=== PATIENT | male | born 1975 | race Caucasian/White ===

== ENCOUNTER 2018-08-20 06:27 | Inpatient (IN) | payer SELFPAY ==
[2018-08-20 07:37] LABS: Anion Gap 19 mmol/L (10-20); BUN (Urea Nitrogen) 15 mg/dL (8.9-20.6); Calc. Creatinine Clearance 0 mL/min (70-130); Calcium 9.2 mg/dL (7.8-10.44); Carbon Dioxide 21 mmol/L (22-29); Chloride 90 mmol/L (98-107); Estimated GFR-MDRD 57; Potassium 4.1 mmol/L (3.5-5.1); Sodium 126 mmol/L (136-145)
[2018-08-20] MEDS ORDERED: Insulin Regular 100 units/100 ml in NS IVPB SCH (07:45)
[2018-08-20 07:49] LABS: Glucose 628 mg/dL (70-105)
--- NOTE | 2018-08-20 08:14 | PDOC.FPRHP ---
- History of Present Illness Chief Complaint: Hyperglycemia History of Present Illness: This is a 42 yo obese male who presents to the ED from [facility] with a cc of right arm spasms. He states the spasms started a yesterday evening. He states he does not have control of his arm when these happen. He also states he has been very thirsty and urinating often. He presented to [facility] where his head CT was negative. At that ED, he was found to have an elevated blood glucose of 961. At that time sodium was 116, potassium was 4.5, there was no anion gap at that time and bicarb was 22. Pt received 8 units of IV insulin and was shipped to our ER due to the inability to start insulin drip and at family request. ED Course: Inuslin in fusion 10 units/hour - Allergies/Adverse Reactions Allergies Allergy/AdvReac Type Severity Reaction Status Date / Time No Known Allergies Allergy Unverified 08/20/18 07:38 - Home Medications Medication Instructions Recorded Confirmed Type No Known 08/20/18 08/20/18 History - History PMHx: negative PSHx: negative FHx: noncontributory Social: Denies alcohol use, smokes .5 pack, past use of cocaine, marijuana - Review of Systems General: reports: fatigue. denies: fever/chills, weight/appetite/sleep changes , night sweats Eyes: denies: eye pain, vision changes ENT: denies: nasal congestion, rhinorrhea Respiratory: denies: cough, congestion, shortness of breath Cardiovascular: denies: chest pain, palpitation, edema, paroxysmal nocturnal dyspnea Gastrointestinal: reports: other (polydipsia). denies: nausea, vomiting, diarrhea, constipation Genitourinary: reports: polyuria, other Skin: denies: rashes, lesions Musculoskeletal: denies: pain, tenderness Neurological: denies: numbness, syncope, seizure Psychological: denies: anxiety, depression - Vital signs BP: 120/73 HR: 90 RR: 18 Tmax: 97.9 Pox: 98% on ra Wt: 104 kg - Physical Exam Constitutional: NAD, awake, alert and oriented, other (obese) HEENT: normocephalic and atraumatic, PERRLA, EOMI -HEENT: dry mucus membranes Neck: supple, FROM, trachea midline, no JVD Chest: no-tender to palpation, no lesions Heart: RRR, normal S1/S2, no murmurs/rubs/gallops Lungs: CTAB, no respiratory distress, no wheezing Abdomen: soft, non-tender, bowel sounds present, no masses/distention Musculoskeletal: normal structure, normal tone, ROM grossly normal Neurological: CN II-XII intact Skin: no rash/lesions, good turgor Heme/Lymphatic: no unusual bruising or bleeding, no purpura Psychiatric: normal mood and affect, intact recent and remote memory FMR H&P: Results - Labs Result Diagrams: 08/20/18 11:08 Lab results: Sodium 126 mmol/L (136-145) L 08/20/18 07:02 Potassium 4.1 mmol/L (3.5-5.1) 08/20/18 07:02 Chloride 90 mmol/L (98-107) L 08/20/18 07:02 Carbon Dioxide 21 mmol/L (22-29) L 08/20/18 07:02 BUN 15 mg/dL (8.9-20.6) 08/20/18 07:02 Creatinine 1.36 mg/dL (0.7-1.3) H 08/20/18 07:02 Glucose 628 mg/dL (70-105) H* 08/20/18 07:02 Calcium 9.2 mg/dL (7.8-10.44) 08/20/18 07:02 FMR H&P: A/P - Problem List (1) Type 2 diabetes mellitus with hyperosmolar nonketotic hyperglycemia Current Visit: Yes Status: Acute Code(s): E11.01 - TYPE 2 DIABETES MELLITUS WITH HYPEROSMOLARITY WITH COMA (2) Hyponatremia Current Visit: Yes Status: Acute Code(s): E87.1 - HYPO-OSMOLALITY AND HYPONATREMIA (3) Tobacco abuse Current Visit: Yes Status: Acute Code(s): Z72.0 - TOBACCO USE - Plan This is a 42 yo obese male with no pmh New onset Type 2 diabetes with hyperosmolar hyperglycemic state -Admit to IMCU -Initial blood sugar was 961 -Start Insulin drip, currently at 10 units/hr -Monitor electrolytes and replace as necessary -Aggressive IVF resuscitation - Initial effective osmolality: 313 ORACIO -continue IVF resuscitation, monitor Hyponatremia -Initially 130 (corrected), we will continue to monitor -Currently using NS for IVF Tobacco abuse -Nicotine patch -Encourage cessation Code: full Prophylaxis: lovenox Family: none at bedside Disposition: Home in 1-2 days FMR H&P: Upper Level - Pertinent history 42M presenting to outside ED with primary complaint of right arm spasms. He has had involuntary movement in that arm for the last day with some mild pain. Of note, he has been very thirsty over the last two weeks with associated polyuria. He is c/o fatigue and grogginess as well. Laboratory evaluation reveals profound hyperglycemia but no anion gap. He was given a bolus of 8 units regular insulin and transferred to [facility] for a higher level of care. - Pertinent findings EKG: NSR B at outside ED->628->308 K: 4.5->4.1->3.0 Na: 126->134 beta-HB: 2.56 - Plan Date/Time: 08/20/18 0814 I, Rod Stoddard, have evaluated this patient and agree with findings/plan as outlined by international account executive resident. Pertinent changes/additions are listed here. Diabetic HHS: profoundly hypoglycemic in a hyperosmolar state. No anion gap. Lantus SC given now and will turn off insulin drip in one hour. Continue serial BMPs to monitor potassium. Being repleted in IVF. DMII is a new diagnosis for patient. Will need extensive diabetes education. ORACIO: 2/2 to #1. continue aggressive IVF hydration per protocol. Pseudohyponatremia: normal range when hyperglycemia accounted for. continue serial BMPs
[2018-08-20] MEDS ORDERED: D5 1/2 NS w/20 mEq KCL 1,000 ML IV PRN (09:34)
[2018-08-20] MEDS ORDERED: CCU Electrolyte Replacement 1 EACH IVPB ONE (09:34)
[2018-08-20] MEDS ORDERED: Sodium Chloride 0.9% 1,000 ML IV PRN ×4 (09:34)
[2018-08-20] MEDS ORDERED: NS 0.9% w/ 20 MEQ KCL 1,000 ML IV PRN ×2 (09:34)
[2018-08-20] MEDS ORDERED: Dextrose 5 %-0.45 % NaCl 1,000 ML IV PRN (09:34)
[2018-08-20] MEDS ORDERED: Ondansetron ODT 4 MG TAB PO PRN (09:34)
[2018-08-20] MEDS ORDERED: Enoxaparin Sodium 40 MG/0.4 ML SYRINGE SC SCH ×2 (09:34→10:00)
[2018-08-20] MEDS ORDERED: Acetaminophen 325 MG TAB PO PRN (09:34)
[2018-08-20 11:41] LABS: Anion Gap 12 mmol/L (10-20); BUN (Urea Nitrogen) 11 mg/dL (8.9-20.6); Calc. Creatinine Clearance 136 mL/min (70-130); Calcium 8.6 mg/dL (7.8-10.44); Carbon Dioxide 27 mmol/L (22-29); Chloride 98 mmol/L (98-107); Estimated GFR-MDRD 84; Glucose 308 mg/dL (70-105); Sodium 134 mmol/L (136-145)
--- NOTE | 2018-08-20 12:00 | PRG ---
DATE OF SERVICE: 08/20/2018 I have reviewed the history and physical of Dr. Elvin Liu, and I agree with his assessment and plan. SUBJECTIVE: Mr. Mckeon is a 42-year-old obese white man, who presented to an [facility] emergency room with jerking motions of his right upper extremity. He was found to have a blood glucose in excess of 700. He was transported to our institution for higher level of care. He prior to this had no known history of type 2 diabetes. PHYSICAL EXAMINATION: GENERAL: Mr. Mckeon is awake and alert. He is in no distress. VITAL SIGNS: His blood pressure is 120/70. His room air pulse ox is 97%. He is afebrile with a pulse rate of 88. EAR, NOSE AND THROAT: No erythema or exudate. NECK: Supple. CARDIAC: Heart rhythm regular without gallop or murmur. LUNGS: Clear. No rales or wheezes. No respiratory distress. ABDOMEN: Obese, but flat and soft without guarding, rebound, or rigidity. EXTREMITIES: No edema. NEUROLOGICAL: No focal deficits. LABORATORY DATA: His glucose was initially 628. Sodium was 126, potassium 4.1, chloride 90, bicarbonate 21, anion gap 19, BUN 15, and creatinine 1.36. His calculated effective plasma osmolality was well in excess of 320. His beta-hydroxybutyrate was slightly elevated at 2.56. These numbers are consistent with HHS and new diagnosis of type 2 diabetes. He will be admitted to the MICU, started on fluids and insulin infusion. Job ID: [id number]
[2018-08-20] MEDS ORDERED: Insulin Glargine 10 UNITS in Pre-Filled Syringe SC SCH ×2 (12:15→21:00)
[2018-08-20 14:01] LABS: Anion Gap 10 mmol/L (10-20); BUN (Urea Nitrogen) 11 mg/dL (8.9-20.6); Calc. Creatinine Clearance 152 mL/min (70-130); Calcium 8.4 mg/dL (7.8-10.44); Carbon Dioxide 28 mmol/L (22-29); Chloride 100 mmol/L (98-107); Estimated GFR-MDRD Greater than 90; Glucose 209 mg/dL (70-105); Potassium 3.1 mmol/L (3.5-5.1); Sodium 135 mmol/L (136-145)
[2018-08-20] MEDS ORDERED: Dextrose 50% Abboject 50 ML SYRINGE SLOW IVP PRN (17:12)
[2018-08-20] MEDS ORDERED: Dextrose 5% in Water 1,000 ML IV PRN (17:12)
[2018-08-20] MEDS: HumaLOG 300 UNITS/3 ML VIAL SC PRN (18:17)
[2018-08-20 19:41] LABS: Anion Gap 11 mmol/L (10-20); BUN (Urea Nitrogen) 10 mg/dL (8.9-20.6); Calc. Creatinine Clearance 136 mL/min (70-130); Calcium 7.9 mg/dL (7.8-10.44); Carbon Dioxide 25 mmol/L (22-29); Chloride 103 mmol/L (98-107); Estimated GFR-MDRD 84; Glucose 308 mg/dL (70-105); Potassium 4.2 mmol/L (3.5-5.1); Sodium 135 mmol/L (136-145)
[2018-08-20] MEDS: NS 0.9% w/ 20 MEQ KCL 1,000 ML/1,000 ML BAG IV SCH (20:02)
--- NOTE | 2018-08-20 23:24 | CON ---
DATE OF CONSULTATION: HISTORY OF PRESENT ILLNESS: Mr. Mckeon is a gentleman who does not recall the last time he went to the doctor. He presented with muscle spasm and was found to be extremely hyperosmolar. His mother wanted him transferred to [facility]. They inquired and they did not have bed, so he ended up here. He has not been ill before this. PAST MEDICAL HISTORY: Otherwise unremarkable. FAMILY HISTORY: Noncontributory. SOCIAL HISTORY: Smokes half pack a day. He reportedly uses drugs. Does not drink. REVIEW OF SYSTEMS: Ten points otherwise negative. PHYSICAL EXAMINATION: GENERAL: He is in no distress. VITAL SIGNS: He is 5 feet 3 inches, 216 pounds. He is afebrile. Heart rate is 88, oximetry is 96 on room air. Blood pressure 119/69. HEENT: Pupils are equal. Sclerae are anicteric. NECK: Supple. No lymphadenopathy. LUNGS: Clear. HEART: Regular rhythm. S1 and S2 are normal. ABDOMEN: Soft and nontender. EXTREMITIES: Without clubbing, cyanosis, or edema. LABORATORY DATA: This afternoon, sodium 135, potassium 3.1, chloride 100, bicarbonate 28, BUN 11, and creatinine 0.88. His initial glucose was over 900. I was told he was 628 here. IMPRESSION: Hyperosmolar state with pseudohyponatremia. This is poorly-controlled type 2 diabetes that he did not know he had. Hopefully, he may be managed aggressively with oral agents and a low-dose of slow-release insulin. He will need to find a physician since he does not have one. His beta hydroxybutyrate is likely secondary to severe intravascular volume depletion and a ketogenic state and not secondary to type 1 diabetes. I will be happy to follow with the other physicians caring for him. Job ID: [id number]
[2018-08-21] MEDS: NS 0.9% w/ 20 MEQ KCL 1,000 ML/1,000 ML BAG IV SCH ×2 (01:08→13:01)
[2018-08-21 04:38] LABS: Anion Gap 12 mmol/L (10-20); BUN (Urea Nitrogen) 8 mg/dL (8.9-20.6); Calc. Creatinine Clearance 169 mL/min (70-130); Calcium 7.8 mg/dL (7.8-10.44); Carbon Dioxide 21 mmol/L (22-29); Chloride 106 mmol/L (98-107); Estimated GFR-MDRD Greater than 90; Glucose 287 mg/dL (70-105); Potassium 4.3 mmol/L (3.5-5.1); Sodium 135 mmol/L (136-145)
[2018-08-21 05:15] VITALS: BMI 38.0
--- NOTE | 2018-08-21 05:52 | PDOC.FM ---
- Subjective Subjective: Pt states he is doing better this morning. He states his strength is improving and at that his right arm has not been spasming like before. His mother is at his bedside. - Objective MAR Reviewed: Yes Vital Signs & Weight: Vital Signs (12 hours) Temp Pulse Resp BP Pulse Ox 08/21/18 03:00 98.4 F 85 17 146/83 H 97 08/20/18 23:00 98.7 F 87 16 145/79 H 95 08/20/18 19:45 98 08/20/18 19:00 98.4 F 85 17 141/78 H 96 Weight Weight 97.522 kg I&O: 08/19/18 08/20/18 08/21/18 06:59 06:59 06:59 Intake Total 6840 Balance 6840 Result Diagrams: 08/21/18 04:04 Phys Exam - Physical Examination Constitutional: NAD HEENT: moist MMs Neck: no JVD, supple Respiratory: no wheezing, no rales, clear to auscultation bilateral Cardiovascular: RRR, no significant murmur Gastrointestinal: soft, non-tender, no distention, positive bowel sounds Musculoskeletal: no edema, pulses present Neurological: normal sensation, moves all 4 limbs Psychiatric: normal affect, A&O x 3 Dx/Plan (1) Type 2 diabetes mellitus with hyperosmolar nonketotic hyperglycemia Code(s): E11.01 - TYPE 2 DIABETES MELLITUS WITH HYPEROSMOLARITY WITH COMA Status: Acute (2) Hyponatremia Code(s): E87.1 - HYPO-OSMOLALITY AND HYPONATREMIA Status: Acute (3) Tobacco abuse Code(s): Z72.0 - TOBACCO USE Status: Acute - Plan Plan: This is a 42 yo obese male with no pmh New onset Type 2 diabetes with hyperosmolar hyperglycemic state -HHS resolved -Orders in last night for transfer to medical -Insulin drip has been stopped, sugar is in the 200-300s over night -Electrolytes are stable -NS IVF at maintenance - Initial effective osmolality: 313 -Pt is on levemir and SSI with accuchecks, starting metformin this morning -Mother states she wants to follow up with [facility], I instructed her to make an appointment early this week ORACIO -resolving Hyponatremia -Resolved Tobacco abuse -Encourage cessation Likely home today if he continues to improve
[2018-08-21] MEDS: HumaLOG 300 UNITS/3 ML VIAL SC PRN ×4 (06:13→20:05)
[2018-08-21] MEDS: Sodium Chloride 0.9% 1,000 ML IV SCH ×3 (06:45→19:59)
[2018-08-21 07:41] LABS: Hemoglobin A1c 12.7 % (4.0-6.0)
[2018-08-21] MEDS: Enoxaparin Sodium 40 MG/0.4 ML SYRINGE SC SCH (08:28)
[2018-08-21] MEDS: metFORMIN 500 MG TAB PO SCH ×2 (08:28→17:15)
[2018-08-21] MEDS ORDERED: Insulin NPH/Reg Insulin Hm 300 UNITS/3 ML VIAL SC SCH ×2 (12:00→17:00)
--- NOTE | 2018-08-21 17:38 | PRG ---
DATE OF SERVICE: 08/21/2018 SUBJECTIVE: Asael Mckeon is stable. His mother and Asael are both very nervous about going home. They tell me that they can't get a ride home tomorrow. OBJECTIVE: GENERAL: He is in no distress. His hemodynamics have been stable. LUNGS: Clear. HEART: Regular rhythm. ABDOMEN: Soft. LABORATORY DATA: Sodium 135, potassium 4.3, chloride 106, bicarb 21, BUN 8, creatinine 0.79. Hemoglobin A1c was 12.7. IMPRESSION: Hyperosmolar state, presenting as a new onset of type 2 diabetes. Probably,he should not be discharged until he is comfortable with his medical management. He has beenstarted on oral agent and hopefully with aggressive oral agents, his insulin requirements will be minimal. I again discussed weight loss with the mother. I will sign off. Job ID: [id number] [facility]
[2018-08-22] MEDS: Sodium Chloride 0.9% 1,000 ML IV SCH ×2 (04:18→14:33)
[2018-08-22] MEDS ORDERED: Insulin NPH/Reg Insulin Hm 300 UNITS/3 ML VIAL SC SCH (05:37)
--- NOTE | 2018-08-22 05:43 | PDOC.FM ---
- Subjective Subjective: Pt had some loose stools yesterday, however they are improving this morning. He denies any right arm spasms. His mother states that they may not have a ride today and are also hoping to speak with case management regarding medication assistance. - Objective MAR Reviewed: Yes Vital Signs & Weight: Vital Signs (12 hours) Temp Pulse Resp BP BP Pulse Ox 08/22/18 00:00 98.1 F 76 18 112/76 97 08/21/18 20:00 98.0 F 84 18 112/74 97 Weight Admit Weight 97.522 kg Weight 97.522 kg I&O: 08/20/18 08/21/18 08/22/18 06:59 06:59 06:59 Intake Total 7040 2780 Output Total 600 Balance 6440 2780 Result Diagrams: 08/22/18 06:31 Phys Exam - Physical Examination Constitutional: NAD HEENT: moist MMs Neck: no JVD, supple Respiratory: no wheezing, clear to auscultation bilateral Cardiovascular: RRR, no significant murmur Gastrointestinal: soft, non-tender, no distention, positive bowel sounds Musculoskeletal: no edema, pulses present Neurological: moves all 4 limbs Psychiatric: normal affect, A&O x 3 Dx/Plan (1) Type 2 diabetes mellitus with hyperosmolar nonketotic hyperglycemia Code(s): E11.01 - TYPE 2 DIABETES MELLITUS WITH HYPEROSMOLARITY WITH COMA Status: Acute (2) Hyponatremia Code(s): E87.1 - HYPO-OSMOLALITY AND HYPONATREMIA Status: Acute (3) Tobacco abuse Code(s): Z72.0 - TOBACCO USE Status: Acute - Plan Plan: This is a 42 yo obese male with no pmh New onset Type 2 diabetes with hyperosmolar hyperglycemic state -HHS resolved -Orders in last night for transfer to medical -Insulin drip has been stopped, sugar is in the 200-300s over night -Electrolytes are stable -NS IVF at maintenance - Initial effective osmolality: 313 -We changed from lantus to humulin 70/30 due to cost and we are continuing metformin. -Mother states she wants to follow up with [facility], I instructed her to make an appointment early this week ORACIO -resolving Hyponatremia -Resolved Tobacco abuse -Encourage cessation Likely home today if he continues to improve
[2018-08-22] MEDS: HumaLOG 300 UNITS/3 ML VIAL SC PRN ×4 (05:59→19:51)
[2018-08-22 07:03] LABS: Anion Gap 13 mmol/L (10-20); BUN (Urea Nitrogen) 5 mg/dL (8.9-20.6); Calc. Creatinine Clearance 168 mL/min (70-130); Calcium 8.6 mg/dL (7.8-10.44); Carbon Dioxide 24 mmol/L (22-29); Chloride 104 mmol/L (98-107); Estimated GFR-MDRD Greater than 90; Glucose 240 mg/dL (70-105); Potassium 3.6 mmol/L (3.5-5.1); Sodium 137 mmol/L (136-145)
[2018-08-22] MEDS: Enoxaparin Sodium 40 MG/0.4 ML SYRINGE SC SCH (08:06)
[2018-08-22] MEDS: metFORMIN 500 MG TAB PO SCH ×2 (08:06→17:35)
[2018-08-22] MEDS: Insulin NPH/Reg Insulin Hm 300 UNITS/3 ML VIAL SC SCH ×2 (08:07→17:27)
--- NOTE | 2018-08-23 05:56 | PDOC.FM ---
- Subjective Subjective: NAEO. Patient denies any nausea or vomiting and says he is tolerating PO intake. Does endorse a little diarrhea last night since starting metformin. - Objective MAR Reviewed: Yes Vital Signs & Weight: Vital Signs (12 hours) Temp Pulse Resp BP Pulse Ox 08/23/18 04:00 98.6 F 88 20 130/87 99 08/22/18 21:05 98 08/22/18 19:49 98.9 F 94 20 128/75 98 Weight Admit Weight 97.522 kg Weight 102.54 kg I&O: 08/21/18 08/22/18 08/23/18 06:59 06:59 06:59 Intake Total 7040 2780 2040 Output Total 600 Balance 6440 2780 2040 Result Diagrams: 08/22/18 06:31 Phys Exam - Physical Examination Constitutional: NAD HEENT: moist MMs Neck: supple, full ROM Respiratory: no wheezing, no rales, no rhonchi, clear to auscultation bilateral Cardiovascular: RRR, no significant murmur Gastrointestinal: soft, positive bowel sounds Musculoskeletal: no edema Neurological: non-focal, moves all 4 limbs Psychiatric: normal affect, A&O x 3 Skin: no rash, normal turgor Dx/Plan (1) Obesity Code(s): E66.9 - OBESITY, UNSPECIFIED Status: Acute (2) Hyponatremia Code(s): E87.1 - HYPO-OSMOLALITY AND HYPONATREMIA Status: Acute (3) Tobacco abuse Code(s): Z72.0 - TOBACCO USE Status: Acute (4) Type 2 diabetes mellitus with hyperosmolar nonketotic hyperglycemia Code(s): E11.01 - TYPE 2 DIABETES MELLITUS WITH HYPEROSMOLARITY WITH COMA Status: Acute - Plan Plan: New onset Type 2 diabetes with hyperosmolar hyperglycemic state - HHS resolved, A1c 12.8 on admission. - Insulin drip has been stopped, BG has remained between 220-300 overnight - Will continue humulin 70/30 BID due to cost as well as PO metformin. - Will touch base with CM to ensure patient has assistance he needs to be able to afford his new medications. - Encouraged patient's mother to make sure patient has an appointment scheduled with a PCP prior to d/c. Tobacco abuse - Aware, will encourage cessation. ORACIO - Resolved. - Cr elevated at 1.36 on admission but has since downtrended to WNLs at 0.83. Hyponatremia - Resolved.
[2018-08-23 07:28] LABS: Anion Gap 12 mmol/L (10-20); BUN (Urea Nitrogen) 6 mg/dL (8.9-20.6); Calc. Creatinine Clearance 166 mL/min (70-130); Calcium 8.9 mg/dL (7.8-10.44); Carbon Dioxide 25 mmol/L (22-29); Chloride 104 mmol/L (98-107); Estimated GFR-MDRD Greater than 90; Glucose 235 mg/dL (70-105); Potassium 3.5 mmol/L (3.5-5.1); Sodium 137 mmol/L (136-145)
--- NOTE | 2018-08-23 08:10 | CON ---
DATE OF CONSULTATION: ADDENDUM: Please see the note from Dr. Liu, which I agree. The patient was seen, evaluated, examined, and discussed with the residents by bedside. Sugar has improved, but it has been less than 24 hours since he has been off the insulin drip and seems to be some of this going to need some education as far as how to give himself insulins. We are going to switch him over to the 70/30 insulin to improve compliance, as he is not covered on insurance and that is the cheapest insulin that we can get. We will do 2/3 of his current daily insulin in the morning, 1/3 in the evening, and we will monitor his sugars overnight, and we will adjust as needed. Hopefully, he will be able to go tomorrow. Job ID: [id number]
[2018-08-23] MEDS: metFORMIN 500 MG TAB PO SCH ×2 (08:16→17:10)
[2018-08-23] MEDS: Enoxaparin Sodium 40 MG/0.4 ML SYRINGE SC SCH (08:16)
[2018-08-23] MEDS: Insulin NPH/Reg Insulin Hm 300 UNITS/3 ML VIAL SC SCH (08:18)
--- NOTE | 2018-08-23 08:27 | PRG ---
DATE OF SERVICE: 08/22/2018 ADDENDUM: No change in his status. No more arm symptoms or anything like that. His sugars are not great. They are still fairly high, but drastically improved from admission and now is on the 70/30 and will be switched to 30 units twice daily. The biggest issue on him is for us to figure out how to get him back home, as he was in the [facility] and they do not really have a ride. Hopefully, I can get him insulin. It sounds like they want to follow up with [facility] doctors. I will just make sure we will send him out on metformin and the insulin with standard recommendations as far as looking out for hypoglycemia etc. Knows to followup with a primary care physician this week to further monitor his sugars as an outpatient. Job ID: [id number]
[2018-08-23] MEDS ORDERED: Insulin NPH/Reg Insulin Hm 300 UNITS/3 ML VIAL SC SCH ×2 (09:39→17:00)
[2018-08-23 09:58] LABS: ALT (SGPT) 39 U/L (8-55); AST (SGOT) 28 U/L (5-34); Albumin 3.3 g/dL (3.5-5.0); Alkaline Phosphatase 64 U/L (40-150); Bilirubin, Direct 0.2 mg/dL (0.1-0.3); Bilirubin, Total 0.5 mg/dL (0.2-1.2)
[2018-08-23 09:59] LABS: Cardiac Risk 4.6 (Less than 4.5)
[2018-08-23 11:49] VITALS: BP 142/91; TEMP 97.9
[2018-08-23] MEDS: HumaLOG 300 UNITS/3 ML VIAL SC PRN ×2 (11:49→16:59)
--- NOTE | 2018-08-24 11:14 | DIS ---
DATE OF ADMISSION: 08/20/2018 DATE OF DISCHARGE: 08/23/2018 RESIDENT: Vanessa Dent MD ADMITTING ATTENDING: Jay Rodriguez MD DISCHARGE ATTENDING: Anabel Puga MD CONSULTS: Pulmonology, Dr. Bk Gonzáles. PROCEDURES: None. PRIMARY DIAGNOSES: 1. Type 2 diabetes mellitus with hyperosmolar nonketotic hyperglycemia. 2. Hyponatremia. 3. ORACIO 2/2 hypovolemia from HHS SECONDARY DIAGNOSES: 1. Tobacco abuse. 2. Obesity. DISCHARGE MEDICATIONS: 1. Metformin 500 mg p.o. b.i.d. with meals. 2. Novolin 70/30, 100 units/mL vial and 36 units SQ b.i.d. with meals. DISCONTINUED MEDICATIONS: None. HOSPITAL COURSE: The patient is a 42-year-old gentleman with no significant past medical history, who was transferred to the [facility] emergency department from [facility] with a chief complaint of right arm spasms that he states began the night prior to the date of presentation. He also endorsed some associated increased thirst and urination. At the outside emergency department, he was found to have an elevated blood glucose of 961, a sodium of 116, and a potassium of 4.5. There was no anion gap noted. At that time, his bicarbonate level was 22. The patient received 8 units of IV insulin and was transferred to the [facility] at [facility]. On arrival to the [facility], the patient's vitals were noted to be within normal limits; however , his blood glucose level was still significantly elevated at 628. Other lab abnormalities included a sodium of 126, a CO2 level of 21, and slightly elevated creatinine of 1.06. The patient was started on insulin drip at a rate of 10 units per hour and admitted to the [facility] medicine service for medical management. Based on his significantly-elevated blood glucose level and hyperosmolar state, the patient was determined to be in diabetic HHS and was continued on the insulin drip on the floor. The patient was also started on aggressive IV fluid resuscitation which were continued overnight. The following morning, the patient's HHS was noted to have resolved and his insulin drip was discontinued overnight as his blood sugars came down to the 200 to 300 range. His IV fluids were decreased to a maintenance rate and the patient was started on Levemir and sliding scale insulin as well as p.o. metformin for diabetes control. Of note, his acute kidney injury and hyponatremia had both resolved as well. The patient was monitored closely over the course of the weekend and educated extensively on diabetes management and insulin therapy. His IVFs were discontinued and he was started on a CC diet. Thus, by the day of discharge, the patient was comfortable administering insulin to himself, and his blood glucose levels had stabilized in the 200 to 300 range. He was, therefore, determined to be medically stable and cleared for discharge with instructions to have close follow-up with a primary care provider for diabetes management and follow-up. DISPOSITION: Stable. DISCHARGE INSTRUCTIONS: 1. Location: Home. 2. Diet: Diabetic diet. 3. Activity: Activity as tolerated. No restrictions. 4. Followup: The patient was instructed to follow up with his primary care provider, Dr. Hu in [place], [place] within 1 week of discharge. Job ID: [id number]
== END 2018-08-23 17:54 | disposition home or self-care (01) | DRG 638 ==
LOC: ERS 06:27 → IMCU/EMU 07:52 → T4-B 08-21 06:40
PROVIDERS: ADMIT Student in an Organized Health Care Education/Training Program; ATTEND Student in an Organized Health Care Education/Training Program
DX: E11.00 Type 2 diabetes mellitus with hyperosmolarity without nonketotic hyperglycemic-hyperosmolar coma (NKHHC) (principal); E87.1 Hypo-osmolality and hyponatremia; N17.9 Acute kidney failure, unspecified; F17.210 Nicotine dependence, cigarettes, uncomplicated; E66.01 Morbid (severe) obesity due to excess calories
CPT/HCPCS: 36415; 36416; 80048; 80061; 80076; 82010; 83036; 84443; 96365; J1650; J1815; J7050